=== PATIENT | female | born 1985 | race Caucasian/White ===

== ENCOUNTER → 2021-07-15 15:24 | Outpatient (BNVA) | payer SELFPAY | PROVIDERS: Family Provider Family Medicine; PCP Family Medicine; Visit Provider Nurse Practitioner Family | DX: Z20.822 Contact with and (suspected) exposure to COVID-19 (principal); J06.9 Acute upper respiratory infection, unspecified | CPT/HCPCS: 87635 ==

== ENCOUNTER 2022-09-10 10:41 | Emergency (ER) | payer MEDICAID, SELFPAY ==
[2022-09-10 11:02] VITALS: BP 133/77; PULSE 95; RESP 16; TEMP 36.4; O2SAT 100; BMI 23.8
--- NOTE | 2022-09-10 11:12 | ED_ITS ---
HPI - Extremity Problem General: Chief complaint: Extremity Injury, Lower Stated complaint: Left foot injury Time Seen by Provider: 09/10/22 11:12 History of Present Illness: Ms. Navarro is a 37-year-old lady without pertinent medical history presenting to the emergency department due to concern of foot injury. She was moving pieces of wood yesterday when she dropped 1 on the left foot immediately had mild pain however was able to ambulate. Since that time has had increasing pain. Pain is become severe to the point of nausea. Worse with weightbearing and palpation. She has not tried home medications due to nausea. No other specific changes in health, exacerbating, or alleviating factors identified. Onset (ago): day(s) Pain Consistency: constant Location: left and lower extremity Quality: aching and sharp Radiation: none Exacerbating factors: weight bearing, walking and palpation Review of Systems General: Reports: 10 or more systems reviewed and unremarkable except in HPI and below PFSH ED PFSH: Medical History (Updated 09/18/22 @ 00:00 by ) No significant past medical history Surgical History (Updated 09/10/22 @ 11:22 by Nick Pierre MD) No significant past surgical history Social History (Updated 09/10/22 @ 11:21 by Nick Pierre MD) Smoking and tobacco status: current every day smoker Female Reproductive History: Date of last menstrual period: 09/01/22 Physical Exam Const: COMMON NORMALS: alert GENERAL APPEARANCE: cooperative and well developed HENMT: COMMON NORMALS: normocephalic and atraumatic HEAD & SCALP: normoce phalic and atraumatic Eye: COMMON NORMALS: conjunctivae normal CONJUNCTIVA: Yes conjunctivae normal SCLERA: sclerae normal Neck/C-Spine: COMMON NORMALS: supple GENERAL: Yes trachea midline Resp: COMMON NORMALS: clear to auscultation bilaterally EFFORT & INSPECTION: Yes able to speak in complete sentences AUSCULTATION: clear to auscultation bilaterally Cardio: COMMON NORMALS: regular rate and regular rhythm RATE: regular rate RHYTHM: regular rhythm GI: PALPATION: No Guarding due to palpation present (GI) Extremity: NARRATIVE EXTREMITY EXAM: Left dorsal foot contusion with abrasion to the proximal aspect of the midfoot. Ecchymosis present. Tenderness palpation. CMS intact. No tenderness palpation of the lower leg or ankle structures. GENERAL: Yes normal exam except as noted and No edema Neuro: COMMON NORMALS: moves all extremities SENSORIUM/ORIENTATION: Yes alert and No Orientation impaired Psych: COMMON NORMALS: mental status grossly normal and Normal thought process present THOUGHT PROCESS: Normal thought process present Course Vital Signs: Vital signs: Vital Signs Temperature 97.6 F 09/10/22 11:02 Pulse Rate 91 09/10/22 13:08 Respiratory Rate 16 09/10/22 13:08 Blood Pressure 133/77 09/10/22 13:08 Pulse Oximetry 99 09/10/22 13:08 MDM - Extremity (Nontraumatic) Medical Decision Making 37-year-old lady presenting with foot injury. Exam as above. X-ray obtained and negative for acute fracture. The results of ED evaluation were discussed with the patient including prescriptions and/or symptomatic cares (if applicable) including appropriate and responsible use, followup plan, and return precautions. The patient verbalized understanding and felt safe for discharge. Medical Records I reviewed the patient's medical records. Lab Data I reviewed the patient's lab results. Radiology Impressions Foot X-Ray 09/10/22 11:16 IMPRESSION: 1. Dorsal soft tissue swelling. 2. No acute fracture is seen. Discharge Plan Discharge Patient Disposition: Home Clinical Impression: Contusion of foot, Abrasion of foot Condition: Stable Prescriptions: New ondansetron 4 mg tablet,disintegrating 4 mg PO Q8H PRN (Reason: nausea and vomiting) Qty: 15 0RF oxycodone 5 mg tablet 5 mg PO Q4H PRN (Reason: pain) Qty: 6 0RF No Action methylprednisolone [Medrol (Vicente)] 4 mg tablets,dose pack See Rx Instructions PO PER PKG DIR Qty: 21 0RF Rx Instructions: PO PER PKG DIR azithromycin 250 mg tablet See Rx Instructions PO .COMPLEX Qty: 6 0RF Rx Instructions: take 500 mg today (day 1), then 250 mg for 4 days (days 2-5) PO Discharge Orders: Discharge ED (Routine); Ordered 09/10/22 Ordered By: Nick Pierre Referrals: Jeni Alvarez DO [Primary Care Provider] - Discharge Diet: Usual diet Discharge Activity: Increase activity as tolerated Patient Instructions: Foot Contusion (ED), Abrasion (ED), Opioid Safety, Pain Management Activity Restrictions/Additional Instructions: Thank you for visiting the emergency department. You were seen and evaluated for foot injury. No bony injury was identified on x-ray. The most likely cause of your pain is soft tissue injury. I will prescribe antinausea medication and a short course of opioid pain medications. Please use this cautiously. Please continue to use [id number] medications for symptoms, do not exceed the daily recommended dosage, many namebrand medications contain the same active ingredients. Elevation, ice may also help with symptoms. Do not apply ice directly to skin. Use a 2:1 ratio of off time to on-time for ice, for example if you place ice on for 15 minutes make sure to take it off for at least 30 minutes before reapplying. Please follow-up with your primary care provider, if symptoms persist you may require repeat x-rays. Return to the emergency department for uncontrolled symptoms or anything else that you are concerned about a feel needs emergency department evaluation. Coding Level of Care Code ED Manager Insurance for [employer] Coker Exam Comprehensive
--- NOTE | 2022-09-10 11:16 | XRR_ITS ---
PROCEDURE INFORMATION: Exam: XR Left Foot Exam date and time: 09/10/2022 11:53 AM Age: 37 years old Clinical indication: Trauma. Dropped wood on foot. Blunt left foot trauma. Dropped wood on top. Pain with ambulation. Extra view weight bearing please. TECHNIQUE: Imaging protocol: Radiologic exam of the Left foot. Views: 3 or more views. COMPARISON: No relevant prior studies available. FINDINGS: Bones/joints: No fracture, dislocation or subluxation. No periosteal reaction or supsicious bone lesion. No tibiotalar joint effusion. No calcaneal spur. The visualized Achilles tendon is grossly normal in morphology. Probable bone island in the calcaneus. Soft tissues: Dorsal soft tissue swelling. XR/XR foot LT min 3V* [id number] IMPRESSION: 1. Dorsal soft tissue swelling. 2. No acute fracture is seen.
[2022-09-10] MEDS: ketorolac 30 mg/mL INJ IM (11:37)
[2022-09-10] MEDS: ondansetron 4 MG Tablet PO (11:37)
[2022-09-10] MEDS: oxyCODONE 5 mg IR Tab/Cap PO (12:55)
[2022-09-10] MEDS: acetaminophen 500 mg Tablet 1000 MG PO (12:55)
[2022-09-10 13:08] VITALS: BP 133/77; PULSE 91; RESP 16; O2SAT 99
== END 2022-09-10 13:10 | disposition home or self-care (01) ==
PROVIDERS: Emergency Provider Emergency Medicine; PCP Family Medicine
DX: S90.32XA Contusion of left foot, initial encounter (principal); S90.812A Abrasion, left foot, initial encounter; F17.210 Nicotine dependence, cigarettes, uncomplicated; W20.8XXA Other cause of strike by thrown, projected or falling object, initial encounter
CPT/HCPCS: 73630; 96372; 99284; J1885; Q0162

== ENCOUNTER 2023-01-12 11:42 | Day surgery (SDC) | payer MEDICAID, SELFPAY ==
[2023-01-11 10:04] VITALS: BMI 23.8
[2023-01-12] VITALS (11 sets, daily range): BP systolic 93–129; BP diastolic 56–88; PULSE 56–95; RESP 11–17; TEMP 36.5–36.6; O2SAT 98–100
[2023-01-12] MEDS: sodium chloride 0.9% 1,000 ML 30 ML IV (12:03)
--- NOTE | 2023-01-12 12:21 | ANES.PREANE2 ---
Pre-Anesthetic Assessment Height/Weight: Height 1.68 m Weight 67.132 kg O2 Del Method 01/12/23 11:55 Preop Diagnosis: AUB Operation Date: 01/12/23 13:10 Proposed Procedures p Hysteroscopy, dilation and curettage with Myosure [id number],N93.9(Not Applicable) - Jacy Mukherjee MD s Dilation And Curettage (D&C)(Not Applicable) - Jacy Mukherjee MD Familial anesthetic complications: None Was Beta Lida taken within 24 hours: N/A Was Clonidine taken within 24 hours: N/A Last intake: Intake Last Liquid Date 01/11/23 Last Liquid Time 22:00 Last Solid Date 01/11/23 Last Solid Time 20:00 Social Alcohol and Tobacco Exam alert, oriented x 3, clear to auscultation bilaterally and regular rate & rhythm Airway Mallampati: Class II Dentition: full Anesthetic Plan ASA status: 2 Anesthesia: General Risk of > 500 ml blood loss (7ml/kg in children): No Medications/Allergies Home Medications Medication Instructions Recorded Confirmed Last Taken Type No Known Home Medications 11/05/22 01/11/23 Unknown History Allergies Allergy/AdvReac Type Severity Reaction Status Date / Time morphine Allergy headache-it Verified 01/12/23 12:00 arvin Current Medications Generic Name Dose Route Start Last Admin Trade Name Freq PRN Reason Stop Dose Admin Sodium Chloride 1,000 mls @ 30 mls/hr 01/12/23 12:00 01/12/23 12:03 Sodium Chloride 0.9% IV 01/13/23 11:59 30 mls/hr .Q24H KEENAN Administration PFSH Anesthesia Medical History No significant past medical history Surgical History No significant past surgical history Family History Mother Hypertension Denies family history of Colon cancer Ovarian cancer Diabetes Heart disease Hypercholesteremia Breast cancer Uterine cancer Thyroid disease Stroke Data Anesthesia Cardiac Studies: No Data to Display
[2023-01-12 12:27] LABS: OR HCG Qualitative Urine Negative (Negative)
[2023-01-12] MEDS: midazolam 1 mg/mL INJ 2 mL 2 MG IVP (15:20)
[2023-01-12] MEDS: ceFAZolin 2,000 MG in sodium chloride 0.9% (plus) 50 ML 100 MG IV (15:27)
--- NOTE | 2023-01-12 15:54 | W.PM.OPSUD ---
Surgery/Procedure H&P Update DATE OF PROCEDURE: January 12, 2023 DATE H&P PERFORMED: 12/25/22 H&P UPDATE INFORMATION: I have reviewed H&P completed within last 30 days, I have examined patient prior to procedure and No changes to prior documentation PREOP DIAGNOSIS: AUB PLANNED PROCEDURE: Operation Date: 01/12/23 13:10 Proposed Procedures p Hysteroscopy, dilation and curettage with Myosure [id number],N93.9(Not Applicable) - Jacy Mukherjee MD s Dilation And Curettage (D&C)(Not Applicable) - Jacy Mukherjee MD Related Problem List Diagnoses (1) Abnormal uterine bleeding (AUB): (2) ASCUS with positive high risk HPV:
--- NOTE | 2023-01-12 17:20 | PM.OP ---
Operative Report Date of procedure: January 12, 2023 Pre-op diagnosis: Preop Diagnosis AUB Post-op diagnosis: same Post-op findings: 8 week sized uterus with multiple polyps and excessive tissue Procedure done: hysteroscopy, D&C, Myosure Specimens removed/disposition: endometrial curettings to pathology Surgeon: Jacy Mukherjee Anesthesia: MAC Estimated blood loss (mL): 5 IV fluids (mL): 650 Complications: none Findings: hysteroscopy deficit: 190 ml Condition: stable Disposition: PACU Procedure: The patient was taken to the operating room where monitored anesthesia was administered and to be adequate. She was prepped and draped in the normal sterile fashion in the dorsal lithotomy position in [facility]. A weighted speculum was placed into the vagina and the anterior lip of the cervix grasped with a single-tooth tenaculum. The uterus was sounded to 8 cm. The cervix was dilated to 16 [place]. The hysteroscope was advanced into the endometrial cavity. There was excessive tissue and multiple polyps visualized. The MyoSure device was activated and the tissue was removed. Pictures were taken pre and post procedure. All instruments were removed. The patient tolerated the procedure well. Sponge lap and needle counts were correct x3. She was taken to the recovery room in stable condition.
--- NOTE | 2023-01-12 17:27 | PM.DCS ---
Discharge Providers Date of Admission: 01/12/23 Date of Discharge: January 12, 2023 Attending Provider at Discharge: Jacy Mukherjee MD Primary Care Provider: Jeni Alvarez DO Diagnoses at Discharge Discharge Diagnosis (1) Abnormal uterine bleeding (AUB): Status: Acute (2) ASCUS with positive high risk HPV: Status: Acute Reason for Visit Reason for Visit: abnormal uterine and vaginal bleeding, unspecified Hospital Course Hospital Course The patient was admitted for surgery. She did well postoperatively and was ready for discharge. Discharge Data Studies Completed and Pending Pending at discharge Category Date Time Status Pathology: Surgical [PTH] Routine Pth 01/12/23 17:05 Ordered Laboratory Results Urine HCG, Qual Negative (Negative) 01/12/23 12:21 Vitals Last Vital Signs Temp 97.9 F 01/12/23 17:17 Pulse 59 L 01/12/23 17:20 Resp 12 01/12/23 17:20 BP 96/58 01/12/23 17:20 Pulse Ox 99 01/12/23 17:20 O2 Del Method 01/12/23 17:20 O2 Flow Rate 8 01/12/23 17:20 Discharge Plan Discharge Patient Disposition: Home Condition: Stable Prescriptions: No Action No Known Home Medications Discharge Orders: Discharge Order (Routine); Ordered 01/12/23 Ordered By: Jacy Mukherjee Discharge Attestations Time Spent in Discharge Care*: less than 30 min Quality Metrics Clinical Quality Measures [ No reported AMI, CVA or VTE this stay] Coding Level of Care Code Acute Code for Chg Fwd Diagnoses Abnormal uterine bleeding (AUB) N93.9 ASCUS with positive high risk HPV
--- NOTE | 2023-01-12 17:29 | PC.NURSE ---
patient awake. Airway removed
--- NOTE | 2023-01-12 17:43 | ANE.PACU2 ---
Inpatient post-anesthesia follow up: Airway intact: Yes Vital signs: Temperature 97.9 F Pulse Rate 84 Respiratory Rate 12 Blood Pressure 123/85 Pulse Oximetry 99 Oxygen Delivery Me thod Room Air Oxygen Flow Rate 8 Fraction of Inspir ed Oxygen Hydration adequate: Yes Nausea and vomiting: No Pain level: 2 Mental status: Baseline
== END 2023-01-12 18:30 | disposition home or self-care (01) ==
PROVIDERS: Anesthesiology; PCP Family Medicine; Visit Provider Obstetrics & Gynecology
PROC: 0UDB8ZZ Extraction of Endometrium, Via Natural or Artificial Opening Endoscopic (ICD-10-PCS; CPT 58558; principal; 2023-01-12 13:00)
PROC: (CPT 58120; 2023-01-12 13:00)
DX: N84.0 Polyp of corpus uteri (principal); R87.610 Atypical squamous cells of undetermined significance on cytologic smear of cervix (ASC-US); R87.810 Cervical high risk human papillomavirus (HPV) DNA test positive
CPT/HCPCS: 58558; 81025; 84703; 88305; J0690; J1100; J1885; J2250; J2405; J2704; J3010; J7030

== ENCOUNTER 2023-04-06 10:04 | Observation (INO) | payer MEDICAID, SELFPAY ==
[2023-04-01 09:46] VITALS: BMI 22.6
[2023-04-01 10:05] LABS: Basophils # 0.1 10^3/uL (0.0-0.1); Basophils % 0.6 %; Eosinophils # 0.1 10^3/uL (0.0-0.8); Eosinophils % 1.7 %; Hematocrit 43.2 % (37.0-47.0); Hemoglobin 13.9 g/dL (11.5-15.3); Lymphocytes # 3.1 10^3/uL (0.8-4.8); Lymphocytes % 37.6 %; Mean Corpuscular HGB Conc 32.2 g/dL (30.0-36.0); Mean Corpuscular Hemoglobin 30.6 pg (28.0-34.0); Mean Corpuscular Volume 95.2 fl (81-99); Mean Platelet Volume 8.9 fL (7.4-10.4); Monocytes # 0.6 10^3/uL (0.2-0.9); Monocytes % 7.4 %; Neutrophils % 52.5 %; Nucleated Red Blood Cells % 0 %; Platelet Count 339 10^3/cmm (130-400); Red Blood Count 4.54 10^6/uL (4.1-5.3); Red Cell Distribution Width 13.8 % (12.1-15.1); White Blood Count 8.2 10^3/uL (4.0-10.0)
[2023-04-01 10:23] LABS: Blood Urea Nitrogen 6 mg/dL (6-20); Calcium 9.2 mg/dL (8.5-10.5); Carbon Dioxide 22 mmol/L (22-29); Chloride 105 mmol/L (98-107); Glucose 74 mg/dL (65-115); Osmolality Calculated 284 mOsm/kg (285-295); Sodium 139 mmol/L (136-145)
--- NOTE | 2023-04-01 17:13 | ANES.PREANE2 ---
Pre-Anesthetic Assessment Height/Weight: Height 1.68 m Weight 63.503 kg Preop Diagnosis: AUB, abnormal pap Operation Date: 04/06/23 07:00 Proposed Procedures p Laparoscopic assisted vaginal hysterectomy, bilateral salpingectomy 15421,N93.9(Not Applicable) - Jacy Mukherjee MD s Laparoscopic Salpingectomy(Not Applicable) - Jacy Mukherjee MD Familial anesthetic complications: none Was Beta Lida taken within 24 hours: N/A Was Clonidine taken within 24 hours: N/A Social Tobacco and No alcohol Exam alert, oriented x 3 and regular rate & rhythm Airway Submandibular: within normal limits Cervical ROM: within normal limits Mallampati: Class II Dentition: loose Pulmonary Chronic Obstructive Pulmonary Disease Anesthetic Plan ASA status: 2 Anesthesia: General Medications/Allergies Home Medications Medication Instructions Recorded Confirmed Last Taken Type No Known Home Medications 11/05/22 04/01/23 Unknown History Allergies Allergy/AdvReac Type Severity Reaction Status Date / Time morphine Allergy headache-it Verified 04/01/23 08:23 [facility] Anesthesia Medical History No significant past medical history Surgical History (Updated 04/01/23 @ 09:45 by Sharon Rivera) No significant past surgical history Family History Mother Hypertension Denies family history of Colon cancer Ovarian cancer Diabetes Heart disease Hypercholesteremia Breast cancer Uterine cancer Thyroid disease Stroke Female Reproductive History Date of last menstrual period: 03/24/23 Data Anesthesia 04/01/23 09:55 04/01/23 09:55 Short CBC 04/01/23 Range/Units 09:55 WBC 8.2 (4.0-10.0) 10^3/uL Hgb 13.9 (11.5-15.3) g/dL Hct 43.2 (37.0-47.0) % MCV 95.2 (81-99) fl Plt Count 339 (130-400) 10^3/cmm Neut % (Auto) 52.5 % Neut # (Auto) 4.30 (1.8-7.7) 10^3/uL BMP 04/01/23 09:55 Sodium 139 Potassium 4.0 Chloride 105 Carbon Dioxide 22 BUN 6 Creatinine 0.3 L Glucose 74 Calcium 9.2 Cardiac Studies: No Data to Display
[2023-04-06] VITALS (15 sets, daily range): BP systolic 79–122; BP diastolic 44–81; PULSE 55–87; RESP 11–18; TEMP 36.1–37.2; O2SAT 93–100
[2023-04-06] MEDS: acetaminophen 1,000 MG/100 ML PIGGYBACK 400 MG IV (06:20)
[2023-04-06] MEDS: sodium chloride 0.9% 1,000 ML 30 ML IV (06:20)
[2023-04-06] MEDS: scopolamine 1.5 Patch 1 PATCH TRANSDERMA (06:23)
[2023-04-06] MEDS: CELEcoxib 200 mg Capsule 400 MG PO (06:24)
[2023-04-06] MEDS: phenazopyridine 100 mg Tablet 200 MG PO ×4 (06:24→22:25)
[2023-04-06] MEDS: gabapentin 300 mg Capsule PO (06:24)
--- NOTE | 2023-04-06 06:45 | W.PM.OPSUD ---
Surgery/Procedure H&P Update DATE OF PROCEDURE: April 06, 2023 DATE H&P PERFORMED: 04/01/23 H&P UPDATE INFORMATION: I have reviewed H&P completed within last 30 days, I have examined patient prior to procedure and No changes to prior documentation PREOP DIAGNOSIS: AUB, abnormal pap PLANNED PROCEDURE: Operation Date: 04/06/23 07:00 Proposed Procedures p Laparoscopic assisted vaginal hysterectomy, bilateral salpingectomy 02779,N93.9(Not Applicable) - Jacy Mukherjee MD s Laparoscopic Salpingectomy(Not Applicable) - Jacy Mukherjee MD Related Problem List Diagnoses (1) Adenomyosis: (2) Abnormal uterine bleeding (AUB): (3) ASCUS with positive high risk HPV:
[2023-04-06] MEDS: midazolam 1 mg/mL INJ 2 mL 2 MG IVP (06:49)
--- NOTE | 2023-04-06 06:49 | P.ANESUD_ITS ---
Pre-Anesthetic Update Pre-Anesthetic Assessment: Date of Surgery/Procedure: 04/06/23 Preop [place] gnosis: AUB, abnormal pap Proposed Procedure: Operation Date: 04/06/23 07:00 Proposed Procedures p Laparoscopic assisted vaginal hysterectomy, bilateral salpingectomy 71644,N93.9(Not Applicable) - Jacy Mukherjee MD s Laparoscopic Salpingectomy(Not Applicable) - Jacy Mukherjee MD Any changes to Pre-Anesthetic Assessment?: No Last Intake: Intake Last Liquid Date 04/06/23 Last Liquid Time 00:02 Last Solid Date 04/05/23 Last Solid Time 22:30 Vitals: Temperature 97.9 F 04/06/23 06:04 Temperature Source Temporal Artery S can 04/06/23 06:04 Pulse Rate 87 04/06/23 06:04 Respiratory Rate 16 04/06/23 06:04 Blood Pressure 122/81 04/06/23 06:04 Blood Pressure Shira n 94 04/06/23 06:04 Pulse Oximetry 100 04/06/23 06:04 Oxygen Delivery Me thod Room Air 04/06/23 06:04 Exam: Pre-Anes Outpt Exam: alert, oriented x 3, clear to auscultation bilaterally and regular rate & rhythm Cardiac Studies: No Data to Display
[2023-04-06] MEDS: ceFAZolin 2,000 MG in sodium chloride 0.9% (plus) 50 ML 100 MG IV ×3 (06:57→22:26)
[2023-04-06 07:09] LABS: OR HCG Qualitative Urine Negative (Negative)
[2023-04-06] MEDS: vasopressin 20 unit/mL INJ INJECTION (07:52)
--- NOTE | 2023-04-06 09:10 | P.OP_ITS ---
Operative Report Date of procedure: April 06, 2023 Pre-op diagnosis: Preop Diagnosis AUB, abnormal pap Post-op diagnosis: same Post-op findings: 8 week sized uterus. Fallopian tubes with essure coils present Procedure done: LAVH. bilateral salpingectomy Specimens removed/disposition: uterus and bilateral fallopian tubes to pathology Surgeon: Jacy Mukherjee Anesthesia: General Estimated blood loss (mL): 300 IV fluids (mL): 2,000 Urine output (mL): 250 Complications: none Findings: normal appearing uterus, tubes and ovaries Condition: stable Disposition: PACU Procedure: The patient was taken to the operating room where general anesthesia was administered and found to be adequate. She was prepped and draped in the normal sterile fashion in the dorsal lithotomy position in [facility]. A Bonner catheter was placed. A weighted speculum was placed into the vagina and the anterior lip of the cervix was grasped with a single tooth tenaculum. The Zumi uterine manipulator was placed. The weighted speculum was removed. The gloves were changed and attention was turned to the abdomen. A 5 mm supraumbilical incision was made. Using a 5 mm port with the camera, the port was placed into the abdomen. The abdomen was insufflated. Two low, lateral 5 mm ports were placed on the left and right under direct visualization from the camera. The right tube was grasped and elevated. Using the laparoscopic cautery, the mesosalpinx was divided between the ovary and tube. The tube was removed. This was performed the same way on the left. The uteroovarian ligaments as well as the round ligaments were ligated. Attention was then turned to the vaginal portion of the procedure. The weighted speculum was placed into the vagina. The zumi manipulator was removed. The single tooth tenaculum was removed and replaced with the barbara's tenaculum. 10 mL of dilute Pitressin was injected at the vesicovaginal junction. A circumferential incision was made at the vesicovaginal junction and the vaginal mucosa reflected cephalad. The posterior peritoneum was entered sharply with the Metzenbaum scissors and the long weighted speculum replaced. Using the Rimma clamps the uterosacral ligaments were clamped cut and suture- ligated. The anterior peritoneum was entered sharply with the metzenbaum scissors. Then sequentially the uterine arteries and cardinal ligaments were clamped cut and suture-ligated. A single-tooth tenaculum was used to deliver th e uterus. The remaining segement of the utero-ovarian ligaments were clamped cut and suture-ligated bilaterally and the specimen was removed. The ovary was bleeding from a likely ruptured ovarian cyst. This was sutured with excellent hemostasis. There was also a small, bleeding vessel on the bladder that was ligated with excellent hemostasis. There was only mild bleeding from the cuff. The peritoneum was closed with a pursestring using 2-0 Vicryl. The vaginal cuff was closed with 0 Vicryl in a running locked pattern incorporating the uterosacral ligaments into the lateral aspects of the vaginal cuff. The Bonner catheter was removed and the cystoscope advanced into the bladder. The patient was given pyridium and bilateral spill was noted. There were no injuries or deficits noted in the bladder. The cystoscope was removed and the Bonner was replaced. Vaginal packing was placed for good hemostasis. The gloves and gowns were changed and attention was turned to the abdomen. The ports were closed with 2-0 monocryl with skin glue. The patient tolerated the procedure well. Sponge lap and needle counts were correct x3. She was taken to the recovery room in stable condition.
[2023-04-06] MEDS: HYDROmorphone 1 mg/mL INJ 1 mL 0.5 MG IVP (09:50)
[2023-04-06] MEDS: dextrose 5%-lactated ringers 1,000 ML 125 ML IV (11:08)
[2023-04-06] MEDS: ketorolac 30 mg/mL INJ IVP ×2 (11:09→17:26)
[2023-04-06] MEDS: ondansetron 2 mg/ML SDV 2 mL 4 MG IVP (12:16)
--- NOTE | 2023-04-06 13:54 | ANE.PACU2 ---
Inpatient post-anesthesia follow up: Airway intact: Yes Vital signs: Temperature 98.9 F Pulse Rate 58 Respiratory Rate 16 Blood Pressure 103/57 Pulse Oximetry 96 Oxygen Delivery Me thod Room Air Oxygen Flow Rate 6 Fraction of Inspir ed Oxygen Hydration adequate: Yes Nausea and vomiting: No Pain level: 1 Mental status: Baseline
[2023-04-06] MEDS: HYDROcodone-acetaminophen 5-325 mg Tablet PO ×2 (14:20→22:11)
[2023-04-06] MEDS: hyDROXYzine 25 mg Capsule 50 MG PO (17:27)
[2023-04-06] MEDS: docusate sodium 100 mg Capsule PO (17:27)
--- NOTE | 2023-04-06 19:14 | PC.NURSE ---
Pt ambulating in hallway and around nurses station x 3 laps. Pt did well and had no complaints.
[2023-04-06] MEDS: ibuprofen 800 mg tablet PO (20:36)
[2023-04-07 03:39] VITALS: BP 94/54; PULSE 80; RESP 16; TEMP 36.7; O2SAT 96
--- NOTE | 2023-04-07 05:14 | PC.NURSE ---
THIS RN REMOVED VAGINAL PACKING AT 0500. PT TOLERATED WELL, NO SIGNS OF BLEEDING AFTER REMOVAL.
[2023-04-07 05:20] LABS: Hematocrit 33.6 % (37.0-47.0); Hemoglobin 10.7 g/dL (11.5-15.3); Mean Corpuscular HGB Conc 31.8 g/dL (30.0-36.0); Mean Corpuscular Hemoglobin 30.6 pg (28.0-34.0); Mean Platelet Volume 9.4 fL (7.4-10.4); Platelet Count 242 10^3/cmm (130-400); Red Cell Distribution Width 14.2 % (12.1-15.1); White Blood Count 11.6 10^3/uL (4.0-10.0)
[2023-04-07] MEDS: HYDROcodone-acetaminophen 5-325 mg Tablet PO (05:34)
--- NOTE | 2023-04-07 06:30 | PM.DCS ---
Discharge Providers Date of Admission: 04/06/23 10:04 Date of Discharge: April 07, 2023 Attending Provider at Admission: Jacy Mukherjee MD Attending Provider at Discharge: Jacy Mukherjee MD Primary Care Provider: Jeni Alvarez DO Diagnoses at Discharge Discharge Diagnosis (1) Adenomyosis: Status: Acute (2) Abnormal uterine bleeding (AUB): Status: Acute (3) ASCUS with positive high risk HPV: Status: Acute Reason for Visit Reason for Visit: N93.9 Hospital Course Hospital Course The patient was admitted for surgery. She did well postoperatively and was ready for discharge on day #1 Physical Exam Narrative: The patient is doing well this morning. She is a little sore, but otherwise, no concerns. Her catheter and packing have been removed. She is ambulating and tolerating a regular diet. Const: COMMON NORMALS: no acute distress, average body habitus, patient oriented x3, no limitations, healthy appearing, alert and well nourished GENERAL APPEARANCE: cooperative, comfortable, well kempt and well developed ORIENTATION/CONSCIOUSNESS: Yes awake, Yes oriented to person, Yes oriented to place and Yes oriented to time Resp: COMMON NORMALS: normal respiratory effort GI: COMMON NORMALS: Soft to palpation and non-tender PALPATION: Yes Soft to palpation Extremity: COMMON NORMALS: no calf tenderness Neuro: COMMON NORMALS: patient oriented x3 SENSORIUM/ORIENTATION: Yes alert, Yes oriented to person, Yes oriented to place and Yes oriented to time Psych: APPEARANCE: Yes well kempt Urinary Catheter Management: Bonner: Cath Placed During This Visit: yes, but has since been removed by the nurse Reason for Continuing Indwelling Catheter: Decision to DC Catheter Urinary Catheter Date of Insertion: 04/06/23 Urinary Catheter Time of Insertion: 07:31 Date Urinary Catheter Removed: 04/07/23 Time Urinary Catheter Discontinued: 05:13 Discharge Data Studies Completed and Pending Pending at discharge Category Date Time Status Urine Culture Routine Lab 04/06/23 07:34 Received Pathology: Surgical [PTH] Routine Pth 04/06/23 09:29 Received Laboratory Results WBC 11.6 10^3/uL (4.0-10.0) H 04/07/23 05:05 RBC 3.50 10^6/uL (4.1-5.3) L 04/07/23 05:05 Hgb 10.7 g/dL (11.5-15.3) L 04/07/23 05:05 Hct 33.6 % (37.0-47.0) L 04/07/23 05:05 MCV 96.0 fl (81-99) 04/07/23 05:05 MCH 30.6 pg (28.0-34.0) 04/07/23 05:05 MCHC 31.8 g/dL (30.0-36.0) 04/07/23 05:05 RDW 14.2 % (12.1-15.1) 04/07/23 05:05 Plt Count 242 10^3/cmm (130-400) 04/07/23 05:05 MPV 9.4 fL (7.4-10.4) 04/07/23 05:05 Neut % (Auto) 52.5 % 04/01/23 09:55 Lymph % (Auto) 37.6 % 04/01/23 09:55 Bledsoe % (Auto) 7.4 % 04/01/23 09:55 Eos % (Auto) 1.7 % 04/01/23 09:55 Baso % (Auto) 0.6 % 04/01/23 09:55 Neut # (Auto) 4.30 10^3/uL (1.8-7.7) 04/01/23 09:55 Lymph # (Auto) 3.1 10^3/uL (0.8-4.8) 04/01/23 09:55 Bledsoe # (Auto) 0.6 10^3/uL (0.2-0.9) 04/01/23 09:55 Eos # (Auto) 0.1 10^3/uL (0.0-0.8) 04/01/23 09:55 Baso # (Auto) 0.1 10^3/uL (0.0-0.1) 04/01/23 09:55 Nucleated RBC % (auto) 0 % 04/01/23 09:55 Nucleated RBCs # 0.0 /100WBC 04/01/23 09:55 Sodium 139 mmol/L (136-145) 04/01/23 09:55 Potassium 4.0 mmol/L (3.5-5.1) 04/01/23 09:55 Chloride 105 mmol/L (98-107) 04/01/23 09:55 Carbon Dioxide 22 mmol/L (22-29) 04/01/23 09:55 Anion Gap 16.0 (5-19) 04/01/23 09:55 BUN 6 mg/dL (6-20) 04/01/23 09:55 Creatinine 0.3 mg/dL (0.5-0.9) L 04/01/23 09:55 GFR Calculation 249.0 mL/min (90-130) H 04/01/23 09:55 Glucose 74 mg/dL (65-115) 04/01/23 09:55 Calculated Osmolality 284 mOsm/kg (285-295) L 04/01/23 09:55 Calcium 9.2 mg/dL (8.5-10.5) 04/01/23 09:55 Urine HCG, Qual Negative (Negative) 04/06/23 07:07 Blood Type O Positive 04/06/23 06:14 Rho(D) Type Positive 04/06/23 06:14 Antibody Screen Negative 04/06/23 06:14 Vitals Last Vital Signs Temp 98.1 F 04/07/23 03:39 Pulse 80 04/07/23 03:39 Resp 16 04/07/23 03:39 BP 94/54 04/07/23 03:39 Pulse Ox 96 04/07/23 03:39 O2 Del Method Room Air 04/07/23 03:39 O2 Flow Rate 6 04/06/23 09:29 Discharge Plan Discharge Patient Disposition: Home Condition: Stable Prescriptions: New ibuprofen 800 mg Tablet 800 mg PO Q8H Qty: 30 0RF hydrocodone-acetaminophen 5-325 mg Tablet 1 tab PO Q4H PRN (Reason: Moderate To Severe Pain) Qty: 30 0RF docusate sodium 100 mg Capsule 100 mg PO BID Qty: 60 0RF Discharge Orders: Discharge Order (Routine); Ordered 04/07/23 Ordered By: Jacy Mukherjee Patient Instructions: Opioid Safety Discharge Attestations Time Spent in Discharge Care*: less than 30 min Quality Metrics Clinical Quality Measures [ No reported AMI, CVA or VTE this stay] Coding Level of Care Code Acute Code for Chg Fwd Diagnoses Adenomyosis N80.03 Abnormal uterine bleeding (AUB) N93.9 ASCUS with positive high risk HPV
[2023-04-07 08:30] VITALS: BP 95/68; PULSE 83; RESP 16; TEMP 36.8; O2SAT 97
== END 2023-04-07 08:35 | disposition home or self-care (01) ==
LOC: OBGYN 10:05
PROVIDERS: Admitting Provider Obstetrics & Gynecology; PCP Family Medicine; Visit Provider Obstetrics & Gynecology
PROC: 0UT9FZZ Resection of Uterus, Via Natural or Artificial Opening With Percutaneous Endoscopic Assistance (ICD-10-PCS; CPT 58262; principal; 2023-04-06 07:00)
PROC: (CPT 58661; 2023-04-06 07:00)
DX: N93.9 Abnormal uterine and vaginal bleeding, unspecified (principal); N80.03 Adenomyosis of the uterus
CPT/HCPCS: 58262; 36415; 80048; 81025; 84703; 85025; 85027; 86850; 86900; 87086; 88307; G0378; J0131; J0690; J1100; J1170; J1885; J1940; J2250; J2405; J2704; J2710; J2795; J3010; J3490; J7030; J7121

== ENCOUNTER → 2023-04-22 10:11 | Outpatient (BNVA) | payer MEDICAID, SELFPAY | PROVIDERS: PCP Family Medicine; Visit Provider Obstetrics & Gynecology | DX: R39.9 Unspecified symptoms and signs involving the genitourinary system (principal) | CPT/HCPCS: 81000 ==

== ENCOUNTER 2023-12-21 14:48 | Emergency (ER) | payer MEDICAID, SELFPAY ==
[2023-12-21 15:16] VITALS: BP 109/74; PULSE 83; RESP 16; TEMP 36.9; O2SAT 100; BMI 24.1
--- NOTE | 2023-12-21 15:37 | W.ED.HA ---
HPI - Headache General: Chief Complaint: Headache Stated Complaint: headache, blurred vision, n/v Time Seen by Provider: 12/21/23 15:24 Source: patient Mode of arrival: ambulatory Limitations: no limitations History of Present Illness: Patient is a 38-year-old female presents to ED today for evaluation of headaches. Patient tells me she has had intermittent headaches now for about a year. She has never had any type of evaluation for this. She states at least 4 out of the 7 days a week she has a headache that she describes as a right retro-orbital. She states headaches are resistant to OTC acetaminophen, ibuprofen, and aspirin. Patient states today she began having blurry vision and nausea which concerned her enough to come to the emergency department. Upon arrival she states her vision is back to normal but still is complaining of an 8/10 headache. No fevers. No neck pain or stiffness. She has no previous history of migraines. MD elicited complaint: headache Onset (ago): month(s) Location: right and retro-orbital Severity: severe Pain scale (0-10): 8 Exacerbating factors: none Relieving factors: nothing Associated symptoms: Reports nausea; Deny chest pain, confusion, fever(s), malaise or vomiting Treatments prior to arrival: none Review of Systems Const: Denies: fever(s), chills, body aches, fatigue or malaise Eyes: Reports: blurry vision (subsided now); Denies: blind spots, photophobia, floaters or seeing flashes ENMT: Denies: ear or mastoid pain, tinnitus, disequilibrium, nasal discharge or nasal congestion Card: Denies: chest pain or palpitations Resp: Denies: dyspnea GI: Reports: nausea; Denies: vomiting Musc: Denies: neck pain Neuro: Reports: headache(s); Denies: numbness in extremities, weakness in extremities, sensory changes, lack of coordination, difficulty walking, frequent falls, dizziness, vertigo, confusion, behavioral changes, Slurred speech present, difficulty communicating thoughts or seizure-like activity FORMERLY [facility], [facility] ED PFSH: Medical History ASCUS with positive high risk HPV Adenomyosis Abnormal uterine bleeding (AUB) No significant past medical history Surgical History S/P laparoscopic assisted vaginal hysterectomy (LAVH) 04/06/[address] Mukherjee with bilateral tubes removed History of hysteroscopy No significant past surgical history Family History Mother Hypertension Denies family history of Colon cancer Ovarian cancer Diabetes Heart disease Hypercholesteremia Breast cancer Uterine cancer Thyroid disease Stroke Female Reproductive History: Date of last menstrual period: 04/06/23 Physical Exam Const: COMMON NORMALS: no acute distress, average body habitus, patient oriented x3, no limitations, healthy appearing, alert and well nourished GENERAL APPEARANCE: cooperative ORIENTATION/CONSCIOUSNESS: Yes awake, Yes oriented to person, Yes oriented to place and Yes oriented to time Eye: COMMON NORMALS: no scleral icterus Neck/C-Spine: COMMON NORMALS: full ROM and no meningeal signs GENERAL: Yes normal visual inspection Extremity: GENERAL: Yes normal exam except as noted Neuro: SHAY COMA SCALE: document GCS findings Karval coma scale eye opening: Spontaneous Karval coma scale verbal response: Orientated Shay coma scale motor response: Obey commands Shay coma scale total score: 15 COMMON NORMALS: patient oriented x3, moves all extremities, no focal motor deficits and no sensory deficits noted SENSORIUM/ORIENTATION: Yes alert, Yes oriented to person, Yes oriented to place and Yes oriented to time MENINGEAL SIGNS: Yes no meningeal signs Skin: COMMON NORMALS: no rashes or lesions noted GENERAL SKIN EXAM: no rashes or lesions noted Course Vital Signs: Vital signs: Vital Signs Temperature 98.4 F 12/21/23 15:16 Pulse Rate 66 12/21/23 16:44 Respiratory Rate 16 12/21/23 15:16 Blood Pressure 101/68 12/21/23 16:44 Pulse Oximetry 100 12/21/23 16:44 Oxygen Delivery Me thod Room Air 12/21/23 15:16 MDM - Headache Medical Decision Making Patient here for intermittent headaches over the past year. She is having headaches approximately 4 to 7 days of the week. Pains are mainly located to the right retro-orbital region. She has never had any form of imaging for her headaches. CT scan obtained today showing no acute findings. Cluster headache a possibility given location however she does not complain of any of the ipsilateral lacrimation/rhinorrhea. Will have patient follow-up with neurology for further evaluation of chronic headaches. Patient is stable for discharge from the emergency department. Differential Diagnosis Likely migraine, tension headache and headache Medical Records I reviewed the patient's medical records. Lab Data Radiology Impressions Head CT 12/21/23 15:48 IMPRESSION: No large territorial infarct or intracranial bleed. All radiology interpretation(s) finalized by discharge Discharge Plan Discharge Patient Disposition: Home Clinical Impression: Headache Qualifiers: Headache type: unspecified Headache chronicity pattern: episodic headache Intractability: intractable Qualified Code(s): R51.9 - Headache, unspecified Condition: Stable Prescriptions: No Action albuterol sulfate [Ventolin HFA] 90 mcg/actuation HFA aerosol inhaler 2 puff inhalation Q4H PRN (Reason: shortness of breath or wheezing) Qty: 8.5 0RF sulfamethoxazole-trimethoprim [Bactrim DS] 800-160 mg tablet 1 tab PO BID 10 Days Qty: 20 0RF mupirocin 2 % ointment 1 applic topical BID Qty: 22 0RF Discharge Orders: Discharge ED (Routine); Ordered 12/21/23 Ordered By: Cleopatra Sandra Patient Instructions: Headache Activity Restrictions/Additional Instructions: As we discussed we will have case management reach out to you to set you up with a follow-up appointment with neurology for further evaluation of your chronic headaches. Coding Level of Care Code ED Comb Machine Operator for Yudelka Coker
--- NOTE | 2023-12-21 15:48 | CTR_ITS ---
PROCEDURE INFORMATION: Exam: CT Head Without Contrast Exam date and time: 12/21/2023 4:20 PM Age: 38 years old Clinical indication: Pain; Headache; Additional info: CHERRY, visual change TECHNIQUE: Imaging protocol: Computed tomography of the head without contrast. Radiation optimization: All CT scans at this facility use at least one of these dose optimization techniques: automated exposure control; mA and/or kV adjustment per patient size (includes targeted exams where dose is matched to clinical indication); or iterative reconstruction. COMPARISON: No relevant prior studies available. RADIATION DOSE METRICS: Total DLP (mGy-cm): 1016 FINDINGS: Brain: Normal. No hemorrhage. Unremarkable white matter. No mass effect. Cerebral ventricles: No ventriculomegaly. Paranasal sinuses: There is a mucous retention cyst in the right sinus and left sphenoid sinus. Mastoid air cells: Visualized mastoid air cells are well aerated. Bones/joints: Unremarkable. No acute fracture. Soft tissues: Unremarkable. CT/CT head wo con* [id number] IMPRESSION: No large territorial infarct or intracranial bleed.
[2023-12-21] MEDS: dexamethasone 10 mg/mL INJ 8 MG IV (16:01)
[2023-12-21] MEDS: ondansetron 2 mg/ML SDV 2 mL 4 MG IVP (16:02)
[2023-12-21] MEDS: ketorolac 60 mg/2 mL INJ 30 MG IVP (16:02)
[2023-12-21] MEDS: diphenhydrAMINE 50 mg/mL SDV 1mL IVP (16:02)
[2023-12-21] MEDS: sodium chloride 0.9% 1,000 ML 999 ML IV (16:04)
[2023-12-21 16:44] VITALS: BP 101/68; PULSE 66; O2SAT 100
== END 2023-12-21 16:55 | disposition home or self-care (01) ==
PROVIDERS: Emergency Provider Physician Assistant
DX: R51.9 Headache, unspecified (principal)
CPT/HCPCS: 70450; 96361; 96374; 96375; 99285; J1100; J1200; J1885; J2405; J7030

== ENCOUNTER 2024-03-30 09:05 | Outpatient (CLI) | payer MEDICAID, SELFPAY ==
--- NOTE | 2024-03-30 09:10 | MM_ITS ---
WS: [id number] BILATERAL 3D TOMOSYNTHESIS DIGITAL DIAGNOSTIC MAMMOGRAPHY WITH CAD CLINICAL INFORMATION: L BREAST INDURATION/MASTODYNIA HISTORY: Bilateral breast pain. Clear LEFT nipple discharge. COMPARISON: Baseline TECHNIQUE: Bilateral CC, MLO, and ML views. FINDINGS: The breasts are composed of heterogeneous fibroglandular density, which can limit the detection of sm all underlying mass lesions. Dense nodular tissue upper outer breast bilaterally. Pain marker is uppe r outer LEFT breast with underlying dense parenchymal tissue. Ultrasound is pending. A few incidental punctate calcifications. ULTRASOUND BREAST LEFT TECHNIQUE: Ultrasound left breast focused area of concern. CLINICAL INFORMATION: L BREAST INDURATION/MASTODYNIA FINDINGS: Ultrasound LEFT breast areas of pain upper outer quadrant and subareolar. Dense heterogeneous tissue in the areas of concern. No suspicious underlying lesions in this location. Subareolar region demonstrates mild ductal ectasia. No intraductal or suspicious lesions. Findings ar e benign. MM/[place] [id number] IMPRESSION: BI-RADS: 2-Benign FOLLOW UP: 1 Year Follow-up Recommend return to annual screening mammography.
== END 2024-03-30 09:06 | disposition home or self-care (01) ==
LOC: RAD 09:05
PROVIDERS: Visit Provider Advanced Practice Midwife
DX: N63.21 Unspecified lump in the left breast, upper outer quadrant (principal); N64.4 Mastodynia; R92.30 Dense breasts, unspecified; R92.1 Mammographic calcification found on diagnostic imaging of breast
CPT/HCPCS: 76642; 77062; G0279

== ENCOUNTER → 2024-06-12 14:43 | Outpatient (BNVA) | payer SELFPAY | DX: R53.83 Other fatigue (principal) | CPT/HCPCS: 80053; 84439; 84443; 85025 ==

== ENCOUNTER 2025-04-05 10:11 | Outpatient (CLI) | payer BC, MEDICAID, SELFPAY ==
--- NOTE | 2025-04-05 | MM_ITS ---
WS: [id number] BILATERAL 3D TOMOSYNTHESIS DIGITAL DIAGNOSTIC MAMMOGRAPHY WITH CAD CLINICAL INFORMATION: Nipple discharge clear HISTORY: RIGHT nipple discharge COMPARISON: 2023 TECHNIQUE: Bilateral CC, MLO, and ML views. FINDINGS: The breasts are composed of heterogeneous fibroglandular density, which can limit the detection of small underlying mass lesions. Dense bilateral breast tissue. No visualized mass graphic abnormalities in the retroareolar RIGHT breast. LEFT breast appears unchanged compared to previous. Ultrasound RIGHT breast described below ULTRASOUND BREAST RIGHT TECHNIQUE: Ultrasound right breast focused area of concern. CLINICAL INFORMATION: INDITATIONS FINDINGS: Ultrasound retroareolar RIGHT breast. Incidental ductal ectasia is visualized. No intraductal lesions. No lesions to target for biopsy. MM/MM diag BI tomosynthesis [id number] IMPRESSION: DENSITY: The breasts are heterogeneously dense, which may obscure small masses. BI-RADS: 2 - Benign FOLLOW UP: 1 Year Follow-up Recommend return to annual screening mammography.
--- NOTE | 2025-04-05 10:16 | US_ITS ---
WS: [id number] BILATERAL 3D TOMOSYNTHESIS DIGITAL DIAGNOSTIC MAMMOGRAPHY WITH CAD CLINICAL INFORMATION: Nipple discharge clear HISTORY: RIGHT nipple discharge COMPARISON: 2023 TECHNIQUE: Bilateral CC, MLO, and ML views. FINDINGS: The breasts are composed of heterogeneous fibroglandular density, which can limit the detection of small underlying mass lesions. Dense bilateral breast tissue. No visualized mass graphic abnormalities in the retroareolar RIGHT breast. LEFT breast appears unchanged compared to previous. Ultrasound RIGHT breast described below ULTRASOUND BREAST RIGHT TECHNIQUE: Ultrasound right breast focused area of concern. CLINICAL INFORMATION: INDITATIONS FINDINGS: Ultrasound retroareolar RIGHT breast. Incidental ductal ectasia is visualized. No intraductal lesions. No lesions to target for biopsy. US/US breast RT limited* [id number] IMPRESSION: DENSITY: The breasts are heterogeneously dense, which may obscure small masses. BI-RADS: 2 - Benign FOLLOW UP: 1 Year Follow-up Recommend return to annual screening mammography.
== END 2025-04-05 10:12 | disposition home or self-care (01) ==
PROVIDERS: Visit Provider Advanced Practice Midwife
DX: N64.4 Mastodynia (principal); R92.333 Mammographic heterogeneous density, bilateral breasts; N60.41 Mammary duct ectasia of right breast
CPT/HCPCS: 76642; 77062; G0279

== ENCOUNTER → 2025-06-04 10:33 | Outpatient (BNVA) | payer BC, MEDICAID, SELFPAY | DX: F41.9 Anxiety disorder, unspecified (principal); F32.A Depression, unspecified | CPT/HCPCS: 80053; 80061; 84439; 84443; 85025 ==

== ENCOUNTER → 2025-07-18 10:02 | Outpatient (BNVA) | payer BC, MEDICAID, SELFPAY | DX: E03.9 Hypothyroidism, unspecified (principal) | CPT/HCPCS: 84443 ==

== ENCOUNTER → 2025-08-27 09:57 | Outpatient (BNVA) | payer BC, SELFPAY | DX: E03.9 Hypothyroidism, unspecified (principal) | CPT/HCPCS: 84443 ==

== ENCOUNTER → 2025-09-03 11:16 | Outpatient (BNVA) | payer BC, SELFPAY | DX: R05.9 Cough, unspecified (principal) | CPT/HCPCS: 87400; 87426 ==

== ENCOUNTER → 2025-10-24 08:59 | Outpatient (BNVA) | payer BC, SELFPAY | DX: E03.9 Hypothyroidism, unspecified (principal) | CPT/HCPCS: 84443 ==

== ENCOUNTER → 2025-10-25 08:59 | Outpatient (BNVA) | payer BC, SELFPAY | DX: E03.9 Hypothyroidism, unspecified (principal) | CPT/HCPCS: 84439 ==